=== PATIENT | female | born 1975 | race Caucasian/White ===

== ENCOUNTER 2019-12-17 10:59 | Emergency (ER) | payer OTHER ==
[2019-12-17] MEDS ORDERED: SODIUM CHLORIDE 0.9% 1000ML 1,000 ML IVS ONE (12:43)
[2019-12-17] MEDS ORDERED: diphenhydrAMINE HCL 50 MG/ML VIAL IV PRN (12:43)
[2019-12-17] MEDS ORDERED: FAMOTIDINE IV PREMIX 20 MG in PREMIX BAG 1 BAG IVPB ONE (12:43)
[2019-12-17] MEDS ORDERED: DEXAMETHASONE INJ 10 MG/ML VIAL IV ONE (12:43)
[2019-12-17] MEDS ORDERED: ONDANSETRON INJ 4 MG/2 ML VIAL IV ONE (12:43)
--- NOTE | 2019-12-17 12:49 | ED.PDOC ---
History of Present Illness - General Chief Complaint: Skin/Abrasion/Tear Stated Complaint: facial rash Time Seen by Provider: 12/17/19 12:15 - History of Present Illness Initial Comments: 44 yo F PMH Psoriasis presents to ED c/o rash and itching x 2 weeks. Denies fever chills vomiting diarrhea chest pain sob diaphoresis. Admits nausea. Denies chest pain sob diaphoresis. No change in diet rest bowel or bladder. Admits drinking and smoking denies FH DM admits FH HTN has no PMD for follow up no other c/o today. Allergies/Adverse Reactions: Allergies Ampicillin Allergy (Verified 05/02/16 20:03) Codeine Allergy (Verified 05/02/16 20:03) Home Medications: Ambulatory Orders Wawgtdhkyuiho-Rtji-Qhkzzgljlt [Fioricet] 1 ea PO Q8H PRN #21 tab 05/02/16 Cephalexin [Keflex] 500 mg PO TID #30 cap 05/02/16 Acetaminophen [Tylenol] 650 mg PO Q6H PRN #30 tab 12/17/19 Ibuprofen 600 mg PO Q6H PRN #20 tab 12/17/19 Review of Systems - Review of Systems Constitutional: States: see HPI EENTM: States: see HPI Respiratory: States: see HPI Cardiology: States: see HPI Gastrointestinal/Abdominal: States: see HPI Genitourinary: States: see HPI Musculoskeletal: States: see HPI Skin: States: see HPI Neurological: States: see HPI Endocrine: States: see HPI Hematologic/Lymphatic: States: see HPI All other Systems: Reviewed and Negative Past Medical History (General) - Patient Medical History Hx Stroke: No Hx Hypertension: No Hx Diabetes: No Surgical History: no surgical history - Vaccination History Hx Tetanus, Diphtheria Vaccination: No Hx Influenza Vaccination: No Hx Pneumococcal Vaccination: No - Social History Hx Tobacco Use: Yes Hx Alcohol Use: Yes Hx Substance Use: Yes Hx Substance Use Treatment: No Hx Depression: No - Female History Patient : No Family Medical History - Family History Father Family History: Unknown Physical Exam - Physical Exam General Appearance: No apparent distress Eye Exam: bilateral normal Ears, Nose, Throat: normal ENT inspection, normal pharynx Neck: non-tender, full range of motion Respiratory: lungs clear, normal breath sounds Cardiovascular/Chest: regular rate, rhythm Gastrointestinal/Abdominal: non tender, soft Rectal Exam: deferred Back Exam: normal inspection Extremity: normal range of motion, non-tender Neurologic: no motor/sensory deficits Skin Exam: rash - raised flaky erythematous rash periorbital and paranasal area speaking in full sentences handling secretions Lymphatic: no adenopathy Progress - Progress Progress: 12/17/19 12:51 A/P-Rash, Nausea-iv bolus decadron benadryl pepcid cbc cmp lipase ua upreg zofran reassess if grossly unremarkable patient called Mother to drive her home and will discharge with pepcid prednisone benadryl zofran follow up pcp referral 12/17/19 15:57 12/17/19 12:42 IV:Start .ONCE 12/17/19 12:43 diphenhydrAMINE HCL [Benadryl] 50 mg IV ONCE PRN 12/17/19 13:37 Urine Culture Stat Laboratory Results - last 24 hr 12/17/19 12/17/19 12/17/19 12:57 12:57 13:28 WBC 7.7 RBC 4.50 Hgb 13.9 Hct 41.6 MCV 92.3 MCH 30.8 MCHC 33.4 RDW 14.2 Plt Count 325 MPV 7.2 L Absolute Neuts (auto) 5.40 Absolute Lymphs (auto) 1.20 Absolute Monos (auto) 0.70 Absolute Eos (auto) 0.20 Absolute Basos (auto) 0.10 Neutrophils % 70.7 Lymphocytes % 15.7 L Monocytes % 9.3 H Eosinophils % 3.0 Basophils % 1.3 Sodium 137 Potassium 3.6 Chloride 103 Carbon Dioxide 28 Anion Gap 9.6 L BUN 10 Creatinine 0.65 BUN/Creatinine Ratio 15.4 Random Glucose 99 Serum Osmolality 272.9 L Calcium 9.1 Total Bilirubin 0.6 AST 14 ALT 11 Alkaline Phosphatase 49 Serum Total Protein 6.9 Albumin 4.1 Globulin 2.8 Albumin/Globulin Ratio 1.5 Lipase 35 Urine Color Urine Appearance Urine pH Ur Specific [place] Urine Protein Urine Glucose (UA) Urine Ketones Urine Blood Urine Nitrite Urine Bilirubin Urine Urobilinogen Ur Leukocyte Esterase Urine RBC Urine WBC Ur Epithelial Cells Urine Bacteria Urine HCG, Qual Negative 12/17/19 13:37 WBC RBC Hgb Hct MCV MCH MCHC RDW Plt Count MPV Absolute Neuts (auto) Absolute Lymphs (auto) Absolute Monos (auto) Absolute Eos (auto) Absolute Basos (auto) Neutrophils % Lymphocytes % Monocytes % Eosinophils % Basophils % Sodium Potassium Chloride Carbon Dioxide Anion Gap BUN Creatinine BUN/Creatinine Ratio Random Glucose Serum Osmolality Calcium Total Bilirubin AST ALT Alkaline Phosphatase Serum Total Protein Albumin Globulin Albumin/Globulin Ratio Lipase Urine Color Yellow Urine Appearance Cloudy Urine pH 6.0 Ur Specific [place] 1.015 Urine Protein Negative Urine Glucose (UA) Negative Urine Ketones Negative Urine Blood Trace-intact H Urine Nitrite Positive H Urine Bilirubin Negative Urine Urobilinogen 0.2 Ur Leukocyte Esterase Small H Urine RBC 0 Urine WBC 3-5 H Ur Epithelial Cells 0-1 Urine Bacteria 3+ H Urine HCG, Qual Laboratory Tests 12/17/19 12/17/19 12/17/19 12:57 12:57 13:28 WBC 7.7 RBC 4.50 Hgb 13.9 Hct 41.6 MCV 92.3 MCH 30.8 MCHC 33.4 RDW 14.2 Plt Count 325 MPV 7.2 L Absolute Neuts (auto) 5.40 Absolute Lymphs (auto) 1.20 Absolute Monos (auto) 0.70 Absolute Eos (auto) 0.20 Absolute Basos (auto) 0.10 Neutrophils % 70.7 Lymphocytes % 15.7 L Monocytes % 9.3 H Eosinophils % 3.0 Basophils % 1.3 Sodium 137 Potassium 3.6 Chloride 103 Carbon Dioxide 28 Anion Gap 9.6 L BUN 10 Creatinine 0.65 BUN/Creatinine Ratio 15.4 Random Glucose 99 Serum Osmolality 272.9 L Calcium 9.1 Total Bilirubin 0.6 AST 14 ALT 11 Alkaline Phosphatase 49 Serum Total Protein 6.9 Albumin 4.1 Globulin 2.8 Albumin/Globulin Ratio 1.5 Lipase 35 Urine Color Urine Appearance Urine pH Ur Specific [place] Urine Protein Urine Glucose (UA) Urine Ketones Urine Blood Urine Nitrite Urine Bilirubin Urine Urobilinogen Ur Leukocyte Esterase Urine RBC Urine WBC Ur Epithelial Cells Urine Bacteria Urine HCG, Qual Negative 12/17/19 13:37 WBC RBC Hgb Hct MCV MCH MCHC RDW Plt Count MPV Absolute Neuts (auto) Absolute Lymphs (auto) Absolute Monos (auto) Absolute Eos (auto) Absolute Basos (auto) Neutrophils % Lymphocytes % Monocytes % Eosinophils % Basophils % Sodium Potassium Chloride Carbon Dioxide Anion Gap BUN Creatinine BUN/Creatinine Ratio Random Glucose Serum Osmolality Calcium Total Bilirubin AST ALT Alkaline Phosphatase Serum Total Protein Albumin Globulin Albumin/Globulin Ratio Lipase Urine Color Yellow Urine Appearance Cloudy Urine pH 6.0 Ur Specific [place] 1.015 Urine Protein Negative Urine Glucose (UA) Negative Urine Ketones Negative Urine Blood Trace-intact H Urine Nitrite Positive H Urine Bilirubin Negative Urine Urobilinogen 0.2 Ur Leukocyte Esterase Small H Urine RBC 0 Urine WBC 3-5 H Ur Epithelial Cells 0-1 Urine Bacteria 3+ H Urine HCG, Qual On reassessment and re-examination rash is improved but still present also patient with evidence of UTI will d/c follow up pcp pepcid prednisone benadryl zofran macrobid Departure - Departure Clinical Impression: Rash, Nausea UTI (urinary tract infection) Qualifiers: Urinary tract infection type: site unspecified Hematuria presence: with hematuria Qualified Code(s): N39.0 - Urinary tract infection, site not specified; R31.9 - Hematuria, unspecified Time of Disposition: 16:04 Disposition: Discharge to Home or Self Care Condition: Fair Departure Forms: ED Discharge - Pt. Copy, Patient Portal Self Enrollment Instructions: DI for Abrasion Prescriptions: Acetaminophen [Tylenol] 650 mg PO Q6H PRN #30 tab PRN Reason: Pain Ibuprofen 600 mg PO Q6H PRN #20 tab PRN Reason: Pain Home Medications: Ambulatory Orders Aidtdncrhrosa-Rncs-Bkqohhnztv [Fioricet] 1 ea PO Q8H PRN #21 tab 05/02/16 Cephalexin [Keflex] 500 mg PO TID #30 cap 05/02/16 Acetaminophen [Tylenol] 650 mg PO Q6H PRN #30 tab 12/17/19 Ibuprofen 600 mg PO Q6H PRN #20 tab 12/17/19
[2019-12-17] MEDS ORDERED: FAMOTIDINE IV PREMIX 50 ML IVPB ONE (13:30)
[2019-12-17 15:28] VITALS: BP 128/78; TEMP 99; O2SAT 99
== END 2019-12-17 16:19 | disposition home or self-care (01) ==
LOC: ER 10:59
DX: R21 Rash and other nonspecific skin eruption (principal); N39.0 Urinary tract infection, site not specified; R11.0 Nausea; F17.200 Nicotine dependence, unspecified, uncomplicated; Z88.1 Allergy status to other antibiotic agents; Z88.5 Allergy status to narcotic agent; Z87.2 Personal history of diseases of the skin and subcutaneous tissue
CPT/HCPCS: 36415; 80053; 81001; 81025; 83690; 85025; 87077; 87086; 87186; J1100; J1200; J2405; J3490; J7030